=== PATIENT | female | born 1940 | race Caucasian/White ===

== ENCOUNTER 2017-08-06 19:59 | Emergency (ER) | payer MEDICARE ==
[~2017-08-06] VITALS: Ht 165.1 cm; Wt 83.0 kg
[~2017-08-06 19:59] MED LIST: CA C1TAB62 PO; CHOL2000 PO; ESOM20CA PO; LUTE1CAP PO; MULT-717 PO; [UNRECOGNIZED DRUG - OTHER] PO; [UNRECOGNIZED DRUG - OTHER] PO
[2017-08-06 21:44] VITALS: BP 118/78
== END 2017-08-06 21:51 | disposition home or self-care (01) ==
LOC: ED 21:45
DX: S16.1XXA Strain of muscle, fascia and tendon at neck level, initial encounter (principal); S20.219A Contusion of unspecified front wall of thorax, initial encounter; M25.511 Pain in right shoulder; E78.00 Pure hypercholesterolemia, unspecified; M54.5 Low back pain; V89.2XXA Person injured in unspecified motor-vehicle accident, traffic, initial encounter; Y93.89 Activity, other specified; Y92.410 Unspecified street and highway as the place of occurrence of the external cause; Y99.8 Other external cause status
CPT/HCPCS: 70450; 71046; 72110; 72125; 93005; 99284

== ENCOUNTER → 2018-05-19 | Outpatient (CLI) | payer MEDICARE | END | disposition home or self-care (01) | LOC: CFH 10:52 | PROVIDERS: ATTEND Physician Assistant Surgical | DX: J84.10 Pulmonary fibrosis, unspecified (principal); I71.2 Thoracic aortic aneurysm, without rupture | CPT/HCPCS: 71250 ==

== ENCOUNTER → 2018-07-27 | Outpatient (CLI) | payer MEDICARE ==
[~2018-07-27] MED LIST changes: +ASCO-96 PO; +GINK120T3 PO; +PRAV20TA2 PO
== END | disposition home or self-care (01) ==
LOC: STAR 10:24
PROVIDERS: ATTEND Thoracic Surgery (Cardiothoracic Vascular Surgery)
DX: Z01.818 Encounter for other preprocedural examination (principal); K44.9 Diaphragmatic hernia without obstruction or gangrene
CPT/HCPCS: 93005

== ENCOUNTER 2018-08-05 05:47 | Inpatient (IN) | payer MEDICARE ==
[~2018-08-05] VITALS: Ht 160 cm; Wt 84.3 kg
[2018-08-05] MEDS ORDERED: LACTATED RINGERS 1,000 ML IV SCH (06:31)
[2018-08-05] MEDS ORDERED: BUPIVACAINE/PF-EPI 0.5% 1:200K ONE (06:43)
[2018-08-05] MEDS ORDERED: FENTANYL PF 250 MCG/5ML ONE (07:09)
[2018-08-05] MEDS ORDERED: MIDAZOLAM 1 MG/ML, 2ML ONE (07:09)
[2018-08-05] MEDS ORDERED: SUCCINYLCHOLINE 20 MG/ML, 10ML ONE (07:26)
[2018-08-05] MEDS ORDERED: ONDANSETRON 2MG/ML, 2ML ONE (07:26)
[2018-08-05] MEDS ORDERED: CEFAZOLIN 1,000 MG ONE (07:26)
[2018-08-05] MEDS ORDERED: DEXAMETHASONE 4 MG/ML, 1ML ONE (07:26)
[2018-08-05] MEDS ORDERED: ROCURONIUM 10 MG/ML,10ML ONE (07:26)
[2018-08-05] MEDS ORDERED: PROPOFOL 10 MG/ML, 20ML ONE (07:26)
[2018-08-05] MEDS ORDERED: LABETALOL 5MG/ML, 20ML IV PRN (08:00)
[2018-08-05] MEDS ORDERED: METOCLOPRAMIDE 5 MG/ML, 2ML IV PRN (08:00)
[2018-08-05] MEDS ORDERED: ALBUTEROL SULFATE 2.5 MG/3 ML NPPB PRN (08:00)
[2018-08-05] MEDS ORDERED: MEPERIDINE/PF 25MG/0.5ML IVPush PRN (08:00)
[2018-08-05] MEDS ORDERED: ONDANSETRON 2MG/ML, 2ML IVPush PRN ×2 (08:00→09:00)
[2018-08-05] MEDS ORDERED: OXYcodone 5 MG/5 ML ORAL.SOL UDC PO PRN (08:00)
[2018-08-05] MEDS ORDERED: PROMETHAZINE 25 MG/ML, 1ML IV PRN (08:00)
[2018-08-05] MEDS ORDERED: KETOROLAC 30 MG/1 ML IV PRN (08:00)
[2018-08-05] MEDS ORDERED: hydrALAzine 20 MG/ML, 1ML IV PRN ×2 (08:00→09:00)
[2018-08-05] MEDS ORDERED: ENALAPRILAT 1.25 MG/ML, 2ML IV PRN (09:00)
[2018-08-05] MEDS ORDERED: ACETAMINOPHEN 650 MG/20.3 ML UDC PO PRN (09:00)
[2018-08-05] MEDS ORDERED: morphine SULFATE 10 MG/ML, 1ML IV PRN (09:00)
[2018-08-05] MEDS ORDERED: HYDROcodone/APAP 7.5-325MG/15ML UDC PO PRN (09:00)
[2018-08-05] MEDS ORDERED: LORazepam 2 MG/ML, 1ML IV PRN (09:00)
[2018-08-05] MEDS ORDERED: PROMETHAZINE 25 MG/ML, 1ML IM PRN (09:00)
[2018-08-05] MEDS ORDERED: PROMETHAZINE 12.5 MG SUPP PR PRN (09:00)
[2018-08-05] MEDS ORDERED: ENOXAPARIN 40 MG/0.4 ML SQ SCH (09:00)
[2018-08-05] MEDS ORDERED: DIPHENHYDRAMINE 50 MG/ML, 1ML IV PRN (09:00)
[2018-08-05] MEDS ORDERED: ACETAMINOPHEN 650 MG SUPP PR PRN (09:00)
[2018-08-05] MEDS: FENTANYL PF 100 MCG/2ML IV PRN ×2 (09:01→09:12)
[2018-08-05] MEDS ORDERED: HYDROmorphone 2 MG/ML, 1ML ONE (09:04)
[2018-08-05] MEDS ORDERED: FENTANYL PF 100 MCG/2ML ONE (09:04)
[2018-08-05] MEDS ORDERED: OXYcodone 5 MG/5 ML ORAL.SOL UDC ONE (09:04)
[2018-08-05] MEDS: HYDROmorphone 1 MG/ML, 1ML INJ IV PRN ×2 (09:07→09:36)
[2018-08-05] MEDS ORDERED: KETOROLAC 30 MG/1 ML ONE (09:23)
[2018-08-05 10:31] VITALS: BP 108/73
[2018-08-05] MEDS: FAMOTIDINE 20 MG/2 ML IV SCH (11:54)
[2018-08-05] MEDS: LACTATED RINGERS 1,000 ML IV SCH ×2 (13:55→20:37)
[2018-08-05 15:09] VITALS: BP 119/66
[2018-08-05] MEDS: KETOROLAC 30 MG/1 ML IV PRN (20:33)
[2018-08-05 21:55] VITALS: BP 103/66
[2018-08-06] MEDS: FAMOTIDINE 20 MG/2 ML IV SCH ×2 (00:07→11:54)
[2018-08-06 00:17] VITALS: BP 108/71
[2018-08-06] MEDS: KETOROLAC 30 MG/1 ML IV PRN ×2 (02:32→12:46)
[2018-08-06 04:05] VITALS: BP 110/75
[2018-08-06] MEDS: LACTATED RINGERS 1,000 ML IV SCH (05:58)
[2018-08-06 08:00] VITALS: BP 110/68
[2018-08-06] MEDS ORDERED: HYDR15SO3 PO (11:36)
[2018-08-06] MEDS ORDERED: PRAVASTATIN 20 MG TABLET PO SCH (21:00)
== END 2018-08-06 14:55 | disposition home or self-care (01) | DRG 328 ==
LOC: OUT 05:47 → 4NOR 10:27 → OUT 20:25 → 4NOR 20:26 → DCLOUNGE 08-06 14:47
PROVIDERS: ADMIT Thoracic Surgery (Cardiothoracic Vascular Surgery); ATTEND Thoracic Surgery (Cardiothoracic Vascular Surgery)
PROC: 0DV44ZZ Restriction of Esophagogastric Junction, Percutaneous Endoscopic Approach (ICD-10-PCS; 2018-08-05)
PROC: 0BUT4JZ Supplement Diaphragm with Synthetic Substitute, Percutaneous Endoscopic Approach (ICD-10-PCS; principal; 2018-08-05 07:30)
DX: K44.9 Diaphragmatic hernia without obstruction or gangrene (principal); R13.10 Dysphagia, unspecified; I10 Essential (primary) hypertension
CPT/HCPCS: 71045; G0378; J0690; J1100; J1170; J1650; J1885; J2250; J2405; J2704; J3010; J0330; J3490; J7120; Q4116

== ENCOUNTER 2018-10-21 12:30 | Emergency (ER) | payer MEDICARE ==
[~2018-10-21] VITALS: Ht 160 cm; Wt 73.7 kg
[2018-10-21 16:26] VITALS: BP 123/68
== END 2018-10-21 17:27 | disposition home or self-care (01) ==
LOC: ED 14:15
DX: R60.0 Localized edema (principal); R06.02 Shortness of breath; J90 Pleural effusion, not elsewhere classified; E78.00 Pure hypercholesterolemia, unspecified; Z90.89 Acquired absence of other organs
CPT/HCPCS: 36415; 71046; 71275; 80048; 82040; 83880; 84484; 85025; 85379; 85610; 85730; 93005; 99284; Q9967